=== PATIENT | female | born 1980 | race Caucasian/White ===

== ENCOUNTER 2020-03-23 13:19 | Emergency (ER) | payer OTHER, SELFPAY ==
[2020-03-23 13:35] VITALS: BP 124/68; PULSE 94; RESP 16; TEMP 36.7; O2SAT 100
--- NOTE | 2020-03-23 13:56 | ED.URI ---
HPI - URI/Sore Throat General Chief Complaint: Upper Respiratory Infection Stated Complaint: SORE THROAT Time Seen by Provider: 03/23/20 13:38 Source: patient and RN notes reviewed Mode of arrival: ambulatory Limitations: no limitations History of Present Illness HPI Narrative: Patient presents today complaining of a 2-day history of sore throat, left ear fullness, runny nose, mild cough. Currently rates her pain 4/10. She has not been taking any medication for symptoms prior to arrival. Patient does smoke. MD elicited complaint: sore throat Related Data Home Medications Medication Instructions Recorded Confirmed amlodipine 5 mg DAILY 03/23/20 03/23/20 buspirone 10 mg TID 03/23/20 03/23/20 [id number]-[id number]-uiw-cod 1 cap QID PRN 03/23/20 03/23/20 cyanocobalamin (vitamin B-12) 1,000 mcg MONTHLY 03/23/20 03/23/20 diclofenac sodium 75 mg PO BID 03/23/20 03/23/20 fluoxetine 20 mg DAILY 03/23/20 03/23/20 guanfacine 1 mg PO DAILY 03/23/20 03/23/20 meclizine 25 mg DAILY 03/23/20 03/23/20 ondansetron HCl 8 mg BID 03/23/20 03/23/20 topiramate 200 mg DAILY 03/23/20 03/23/20 trazodone 100 mg HS 03/23/20 03/23/20 Allergies Allergy/AdvReac Type Severity Reaction Status Date / Time morphine Allergy Unknown HIVES Verified 03/23/20 13:37 sumatriptan Allergy Unknown FEELS Verified 03/23/20 13:37 LIKE SHE CHOKING amoxicillin AdvReac Intermediate CAUSES Unverified 03/23/20 13:37 YEAST INFECTIONS SUMATRIPTAN SUCCINATE Allergy Unknown FEELS Uncoded 03/23/20 13:37 LIKE SHE CHOKING Review of Systems Review of Systems: Narrative: CONSTITUTIONAL: Denies body aches, fever, chills, or sweats. EYES: Denies visual changes, redness, or discharge. ENT: Denies rhinorrhea. + Rhinorrhea, left ear fullness, sore throat CARDIOVASCULAR: Denies chest pain, palpitations, or edema. RESPIRATORY: Denies cough or dyspnea. GASTROINTESTINAL: Denies abdominal pain, nausea, vomiting, or diarrhea. GENITOURINARY: Denies dysuria or hematuria. SKIN: Denies rash, itching, or wounds. MUSCULOSKELETAL: Denies back pain, joint pain, or myalgia. NEUROLOGIC: Denies headache, numbness, tingling, or weakness. PSYCH: Denies depression or anxiety. PMFSH Social History Social History Gender identity (if verbalized by the patient): Female Comments At time of signature, I have reviewed and agree with nursing past medical, surgical, social and family history unless otherwise noted. Please see nursing chart for further information. There is no relevant family history pertinent to the presenting complaint Exam Narrative: Exam Narrative: GENERAL: Well-appearing, well-nourished, and in no acute distress. HEAD: Normocephalic, atraumatic. EYES: EOMI. No redness or drainage. Conjunctivae normal. ENT: Mucous membranes pink and moist. Nares clear. No rhinorrhea. TMs normal bilaterally. Throat erythematous with mild edema. No exudate. Uvula midline. NECK: Normal AROM. Supple. No lymphadenopathy. CHEST: No respiratory distress. Clear to auscultation. HEART: Regular rate and rhythm. No murmur appreciated. Normal peripheral pulses. EXTREMITIES: Normal range of motion. No edema. SKIN: Warm, dry, no rash. Capillary refill normal. Normal skin turgor. NEURO: No focal deficits. Alert and oriented x3. Gait steady. PSYCH: Normal affect. No signs of depression or anxiety. Course Course Emergency Course: Patient requesting a dose of fluconazole for possible yeast infection resulting from antibiotic use. States she is not currently taking Zofran listed in her medication list, which is listed as an interaction. She has had the fluconazole several times in the past, while taking the guanfacine. Vital Signs Vital signs: Vital Signs Temperature 98.0 F 03/23/20 13:35 Pulse Rate 94 03/23/20 13:35 Respiratory Rate 16 03/23/20 13:35 Blood Pressure 124/68 03/23/20 13:35 Pulse Oximetry 100 03/23/20 13:35 Temperature 98
== END 2020-03-23 14:09 | disposition home or self-care (01) ==
PROVIDERS: Emergency Provider Nurse Practitioner; PCP Nurse Practitioner Family
DX: J02.0 Streptococcal pharyngitis (principal); I10 Essential (primary) hypertension; F17.290 Nicotine dependence, other tobacco product, uncomplicated
CPT/HCPCS: 87880; 99213; G0463

== ENCOUNTER 2020-05-22 09:02 | Outpatient (CLI) | payer OTHER, SELFPAY | END 2020-05-22 09:03 | disposition home or self-care (01) | LOC: ANHAUDIO 09:04 | PROVIDERS: PCP Nurse Practitioner Family | DX: H90.3 Sensorineural hearing loss, bilateral (principal) | CPT/HCPCS: 92537; 92540; 92546; 92557; 92567 ==

== ENCOUNTER → 2021-02-03 01:01 | Outpatient (CLI) | payer OTHER, SELFPAY ==
[2021-02-03 18:26] LABS: SARS-CoV-2 RNA PCR Negative
== END ==
PROVIDERS: PCP Nurse Practitioner Family; Visit Provider Internal Medicine Gastroenterology
DX: R68.89 Other general symptoms and signs (principal); Z20.822 Contact with and (suspected) exposure to COVID-19
CPT/HCPCS: C9803; U0003; U0005

== ENCOUNTER 2021-02-06 01:24 | Day surgery (SDC) | payer OTHER, SELFPAY ==
[2021-01-26 14:05] VITALS: BMI 35.7
[2021-02-06 10:07] VITALS: BP 144/80; PULSE 91; RESP 18; TEMP 36.3; O2SAT 97
[2021-02-06] MEDS: LACTATED RINGERS 1,000 ML 150 ML IV CONT (10:13)
[2021-02-06 10:20] LABS: Glucose Point of Care 147 mg/dl (65-105)
--- NOTE | 2021-02-06 10:53 | WPDANESEPPF ---
Anes - Initial Pre Proc Eval Procedure: Operation Date: 02/06/21 11:30 Proposed Procedures p Esophagogastroduodenoscopy - Moe Mcgarry MD Date/Time: 02/06/21 10:53 Surgeon: Moe Mcgarry MD Pre Op Diagnosis: nausea, vomiting, dysphagia, epigastric pain Patient Data Age: 40 Gender: F Height: 1.45 m Weight: 75.5 kg Last Vital Signs Temp 36.3 C L 02/06/21 10:07 Pulse 91 02/06/21 10:07 Resp 18 02/06/21 10:07 BP 144/80 H 02/06/21 10:07 Pulse Ox 97 02/06/21 10:07 Allergies Allergy/AdvReac Type Severity Reaction Status Date / Time morphine Allergy Unknown HIVES Verified 02/06/21 10:09 sumatriptan Allergy Unknown FEELS Verified 02/06/21 10:09 LIKE SHE CHOKING amoxicillin AdvReac Intermediate CAUSES Verified 02/06/21 10:09 YEAST INFECTIONS SUMATRIPTAN SUCCINATE Allergy Unknown FEELS Uncoded 02/06/21 10:09 LIKE SHE CHOKING Home Medications Medication Instructions Recorded Confirmed Type amlodipine 5 mg PO DAILY 03/23/20 02/06/21 History [id number]-xklmvppqcs-coz-cod 1 cap PO QID PRN 03/23/20 02/06/21 History cyanocobalamin (vitamin B-12) 1,000 mcg SUBCUT MONTHLY 03/23/20 02/06/21 History diclofenac sodium 75 mg PO BID 03/23/20 02/06/21 History fluoxetine 40 mg HS 03/23/20 02/06/21 History guanfacine 1 mg PO DAILY 03/23/20 02/06/21 History meclizine 25 mg PO TID PRN 03/23/20 02/06/21 History ondansetron HCl 8 mg PO BID PRN 03/23/20 02/06/21 History topiramate 200 mg PO BID 03/23/20 02/06/21 History trazodone 100 mg PO HS 03/23/20 02/06/21 History buspirone 10 mg tablet 15 mg PO TID tablet 12/27/20 02/06/21 History bupropion HCl 450 mg PO DAILY 01/26/21 02/06/21 History doxepin 10 mg PO TID 01/26/21 02/06/21 History ergocalciferol (vitamin D2) 1,250 mcg PO WEEKLY 01/26/21 02/06/21 History hydrochlorothiazide 12.5 mg PO DAILY 01/26/21 02/06/21 History hydroxyzine HCl 50 mg PO TID PRN 01/26/21 02/06/21 History metformin 500 mg PO DAILY 01/26/21 02/06/21 History olanzapine 2.5 mg PO DAILY 01/26/21 02/06/21 History olanzapine 5 mg PO HS 01/26/21 02/06/21 History omeprazole 40 mg PO DAILY 01/26/21 02/06/21 History tizanidine 4 mg PO Q6H PRN 01/26/21 02/06/21 History Laboratory Tests 02/06/21 10:13 POC Capillary Glucose 147 mg/dl H mg/dl (65-105) Patient hx anesthesia problems: none Family hx anesthesia problems: none [facility] Past Medical History Medical History (Updated 12/27/20 @ 15:30 by JAUN ParkN-C) Anxiety Muller esophagus Bipolar 1 disorder Cholecystectomy planned Chronic interstitial cystitis Dysphagia Epigastric abdominal pain Genitourinary disorder Hearing abnormally acute Hypertension IBS (irritable bowel syndrome) Insomnia Lumbar adjacent segment disease with spondylolisthesis Migraine Nausea & vomiting Obese Peripheral neuropathic pain Rectum injury Vertigo Surgical History Surgical History (Updated 12/27/20 @ 14:41 by Angela Thomas MA) History of bladder surgery History of hysterectomy Social History Social History Smoking packs per day: 0.5 Smoking cigarettes per day: 10.0 Years smoked: 20 Smoking pack-years: 10.00 Smoking status: Current every day smoker Tobacco type: cigarettes Substance use: current Substance use type: marijuana Other substance usage details: Daily Living arrangements: with family Gender identity (if verbalized by the patient): Female Spiritual care concerns: No Anes - Eval Final PreProcedure Day of Procedure 02/06/21 10:53 Patient weight: obese Heart: regular rate and rhythm Lungs: clear to auscultation and normal air movement Airway: Mallampati scale class II Neurological: alert and oriented Last oral intake: >/= 8 hours ASA classification: III Emergent: no Anesthetic plan: proceed Anesthesia type and monitoring: general GIVS Informed Consent: The patient's anesthetic plan and its attendant risks and benefits w
--- NOTE | 2021-02-06 11:51 | PM.HPGS ---
History of Present Illness History of Present Illness Consent: Risks, benefits, and alternatives have been discussed and questions answered. Patient agrees to proceed with procedure. Chief complaint: nausea, vomiting, dysphagia, epigastric pain Narrative: Dora Garcia is a 40 year old female with nausea and bloating, she had to increase her omeprazole to 40mg daily, also remote history of Muller's per patient and h/o IBS. Intermittent choking after eating. Review of Systems Constitutional: Constitutional: Denies headache(s) and Denies weakness Eyes: Eyes: Denies blurry vision ENT: Reports Normal hearing present, Denies headache(s) and Denies neck pain Cardiovascular: Cardiovascular: Denies chest pain and Denies dyspnea Respiratory: Respiratory: Denies dyspnea Gastrointestinal: Gastrointestinal: Reports no additional gastrointestinal complaints Genitourinary: Genitourinary: Denies dysuria Musculoskeletal: Musculoskeletal: Denies neck pain Integumentary/Breasts: Skin/Breast: Denies dry skin Neurologic: Reports Normal hearing present, Denies headache(s) and Denies weakness Psychiatric: Psychiatric: Denies anxiety Endocrine: Endocrine: Denies change in body appearance Hematologic/Lymphatic: Hematologic/Lymphatic: Denies easy bleeding Allergic/Immunologic: Allergic/Immunologic: Denies urticaria PMFSH Past Medical History Medical History (Updated 02/06/21 @ 11:52 by Moe Mcgarry MD) Anxiety Muller esophagus Bipolar 1 disorder Bloating Cholecystectomy planned Chronic interstitial cystitis Dysphagia Epigastric abdominal pain Genitourinary disorder Hearing abnormally acute Hypertension IBS (irritable bowel syndrome) Insomnia Lumbar adjacent segment disease with spondylolisthesis Migraine Nausea & vomiting Obese Peripheral neuropathic pain Rectum injury Vertigo Surgical History Surgical History (Updated 12/27/20 @ 14:41 by Angela Thomas MA) History of bladder surgery History of hysterectomy Social History Social History Smoking packs per day: 0.5 Smoking cigarettes per day: 10.0 Years smoked: 20 Smoking pack-years: 10.00 Smoking status: Current every day smoker Tobacco type: cigarettes Substance use: current Substance use type: marijuana Other substance usage details: Daily Living arrangements: with family Gender identity (if verbalized by the patient): Female Spiritual care concerns: No Meds Home Medications and Allergies Home Medications Medication Instructions Recorded Confirmed Type amlodipine 5 mg PO DAILY 03/23/20 02/06/21 History [id number]-imyxdcqvbr-znu-cod 1 cap PO QID PRN 03/23/20 02/06/21 History cyanocobalamin (vitamin B-12) 1,000 mcg SUBCUT MONTHLY 03/23/20 02/06/21 History diclofenac sodium 75 mg PO BID 03/23/20 02/06/21 History fluoxetine 40 mg HS 03/23/20 02/06/21 History guanfacine 1 mg PO DAILY 03/23/20 02/06/21 History meclizine 25 mg PO TID PRN 03/23/20 02/06/21 History ondansetron HCl 8 mg PO BID PRN 03/23/20 02/06/21 History topiramate 200 mg PO BID 03/23/20 02/06/21 History trazodone 100 mg PO HS 03/23/20 02/06/21 History buspirone 10 mg tablet 15 mg PO TID tablet 12/27/20 02/06/21 History bupropion HCl 450 mg PO DAILY 01/26/21 02/06/21 History doxepin 10 mg PO TID 01/26/21 02/06/21 History ergocalciferol (vitamin D2) 1,250 mcg PO WEEKLY 01/26/21 02/06/21 History hydrochlorothiazide 12.5 mg PO DAILY 01/26/21 02/06/21 History hydroxyzine HCl 50 mg PO TID PRN 01/26/21 02/06/21 History metformin 500 mg PO DAILY 01/26/21 02/06/21 History olanzapine 2.5 mg PO DAILY 01/26/21 02/06/21 History olanzapine 5 mg PO HS 01/26/21 02/06/21 History omeprazole 40 mg PO DAILY 01/26/21 02/06/21 History tizanidine 4 mg PO Q6H PRN 01/26/21 02/06/21 History Allergies Allergy/AdvReac Type Severity Reaction Status Date / Time morphine Allergy Unknown HIVES Verified 02/06/21 10:09 sumatriptan Allergy Unknown FEELS Verified
[2021-02-06 12:06] VITALS: BP 119/70; PULSE 73; RESP 29; O2SAT 98
[2021-02-06 12:16] VITALS: BP 133/72; PULSE 77; RESP 29; O2SAT 100
[2021-02-06 12:26] VITALS: BP 132/76; PULSE 72; RESP 29; O2SAT 100
== END 2021-02-06 12:41 | disposition home or self-care (01) ==
PROVIDERS: PCP Nurse Practitioner Family; Visit Provider Internal Medicine Gastroenterology
PROC: 0DJ08ZZ Inspection of Upper Intestinal Tract, Via Natural or Artificial Opening Endoscopic (ICD-10-PCS; CPT 43235; principal; 2021-02-06 11:30)
DX: R14.0 Abdominal distension (gaseous) (principal); K21.9 Gastro-esophageal reflux disease without esophagitis; K29.70 Gastritis, unspecified, without bleeding; K29.50 Unspecified chronic gastritis without bleeding; R11.2 Nausea with vomiting, unspecified; R10.13 Epigastric pain; F41.9 Anxiety disorder, unspecified; F31.9 Bipolar disorder, unspecified; I10 Essential (primary) hypertension; K58.9 Irritable bowel syndrome, unspecified; G47.00 Insomnia, unspecified; F17.210 Nicotine dependence, cigarettes, uncomplicated; F12.90 Cannabis use, unspecified, uncomplicated; Z79.84 Long term (current) use of oral hypoglycemic drugs; E66.9 Obesity, unspecified; Z68.36 Body mass index [BMI] 36.0-36.9, adult
CPT/HCPCS: 43239; 82948; 88305; J2704; J7120

== ENCOUNTER 2021-12-24 16:18 | Emergency (ER) | payer OTHER, SELFPAY ==
--- NOTE | ~2021-12-24 | XR_ITS ---
EXAMINATION: XR chest 1V portable INDICATION: Right-sided weakness TECHNIQUE: Portable AP chest at 1707 hours COMPARISON: None available FINDINGS: The lungs are free of acute opacities. No pleural effusion or pneumothorax. The cardiomedia stinal silhouette is normal. IMPRESSION: 1. No acute cardiopulmonary abnormality. Reviewed, dictated and finalized at location A.
--- NOTE | ~2021-12-24 | CT_ITS ---
EXAMINATION: CT brain wo con INDICATION: Right-sided weakness, headache COMPARISON: None TECHNIQUE: Standard unenhanced head CT. The dose-length product (DLP) was 605.33 mGy-cm. The mA was a djusted according to patient size. Iterative reconstruction technique was employed. FINDINGS: There is no intracranial hemorrhage, acute infarction, or abnormal mass lesion. The ventric les are normal. There is no abnormal mass effect or midline shift. The bella-white matter differentiat ion is normal. The basal cisterns are patent. The orbits are normal. The paranasal sinuses, mastoids and calvarium are normal. IMPRESSION: 1. No acute intracranial abnormality. Reviewed, dictated and finalized at location A.
[2021-12-24 16:23] VITALS: BP 140/94; PULSE 100; RESP 16; TEMP 36.8; O2SAT 100
--- NOTE | 2021-12-24 16:48 | ECG_ITS ---
Measurements Intervals [place] Rate: 73 P: 39 FL: 159 QRS: 19 QRSD: 90 T: 38 QT: 378 QTc: 418 Interpretive Statements SINUS RHYTHM NO PREVIOUS ECG AVAILABLE FOR COMPARISON Electronically Signed On 12-25-2021 10:01:31 CDT by Russell Couch M.D.
--- NOTE | 2021-12-24 16:49 | PC.NURSE ---
Pt's symptoms and onset of symptoms discussed with Dr. Stauffer. Per Dr. Stauffer's verbal orders, place cva protocol orders in triage. Pt may remain in waiting room until room available as last known normal is greater than 24 hours and pt is out of window for immediate stroke intervention.
[2021-12-24 17:05] LABS: Basophils Absolute Auto 0.1 K/mm3 (0.0-0.1); Basophils Percent Auto 0.5 % (0.2-1.2); Eosinophils Absolute Auto 0.4 K/mm3 (0-0.3); Eosinophils Percent Auto 3.5 % (0-4.4); Hematocrit 39.8 % (37.0-47.0); Immature Granulocyte Absolute 0.05 K/mm3 (0.00-0.031); Immature Granulocyte Percent A 0.5 % (0-0.5); Lymphocytes Absolute Auto 3.53 K/mm3 (0.9-3.2); Lymphocytes Percent Auto 35.5 % (18.3-44.2); Mean Corpuscular HGB Conc 32.7 g/dl (32-36); Mean Corpuscular Hemoglobin 29.4 pg (26-34); Mean Platelet Volume 10.2 fl (7.4-10.4); Monocytes Absolute Auto 0.5 K/mm3 (0.1-0.6); Monocytes Percent Auto 5.2 % (2.6-8.5); Neutrophils Absolute Auto 5.4 K/mm3 (1.3-6.7); Neutrophils Percent Auto 54.8 % (45.5-73.1); Platelet Count Result 308 k/mm3 (150-375); Red Blood Count 4.42 M/mm3 (4.2-5.4); Red Cell Distribution Width 13.1 % (11.5-14.5); White Blood Count 9.9 K/mm3 (4.5-10.0)
[2021-12-24 17:14] LABS: INR 1.1; Prothrombin Time 13.6 Seconds (11.1-14.7)
[2021-12-24 17:15] LABS: Partial Thromboplastin Time 29.8 SECONDS (22.3-36.8)
[2021-12-24 17:18] LABS: Alanine Aminotransferase 17 U/L (6-35); Albumin Level 4.5 g/dL (3.5-5.1); Alkaline Phosphatase 74 U/L (38-126); Anion Gap 10 mmol/L (8-16); Aspartate Amino Transferase 17 U/L (14-36); Bilirubin,Total 0.1 mg/dL (0.2-1.3); Blood Urea Nitrogen 14 mg/dL (7-17); Calcium 8.8 mg/dL (8.4-10.2); Carbon Dioxide 21 mmol/L (22-30); Chloride 108 mmol/L (98-107); Estimated Glomerular Filt Rate > 60; Glucose 96 mg/dL (65-110); Potassium 3.2 mmol/L (3.4-5.0); Sodium 139 mmol/L (137-145)
[2021-12-24 17:29] LABS: Troponin I < 0.012 ng/mL (0.000-0.034)
[2021-12-24 17:52] LABS: Glucose Point of Care 93 mg/dl (65-105)
[2021-12-24 17:53] VITALS: BP 115/56; PULSE 92; RESP 19; O2SAT 92
[2021-12-24 17:56] VITALS: BP 115/56; PULSE 92; RESP 20; O2SAT 100
[2021-12-24] MEDS: METOCLOPRAMIDE HCL INJ 10 MG/2 ML VIAL IV PUSH (18:11)
[2021-12-24] MEDS: diphenhydrAMINE HCl INJ 50 MG/ML VIAL 25 MG IV PUSH (18:11)
--- NOTE | 2021-12-24 19:04 | ED.NEUROSD ---
HPI - Neuro Symptoms/Deficit General Chief Complaint: Neuro Symptoms/Deficit Stated Complaint: montgomery/speech prob Time Seen by Provider: 12/24/21 17:44 History of Present Illness HPI Narrative: 41-year-old female with history of migraines presents because about 2 days ago she had noticed right-sided weakness that lasted for about 15 minutes, then resolved. She had a similar episode months ago where she was having difficulty with speech that also resolved on its own, was told at the time to follow-up with neurology did not have a chance to yet. Currently still having migraine. Related Data Home Medications Medication Instructions Recorded Confirmed amlodipine 5 mg tablet 5 mg PO DAILY 03/23/20 02/06/21 butalbital 50 mg-acetaminophen 325 1 cap PO QID PRN Pain 03/23/20 02/06/21 mg-caffeine 40 mg-codeine 30 mg cap cyanocobalamin (vitamin B-12) 1,000 mcg subcut MONTHLY 03/23/20 02/06/21 1,000 mcg/mL injection solution diclofenac sodium 75 mg 75 mg PO BID 03/23/20 02/06/21 tablet,delayed release fluoxetine 20 mg capsule 40 mg HS 03/23/20 02/06/21 guanfacine 1 mg tablet,extended 1 mg PO DAILY 03/23/20 02/06/21 release 24 hr meclizine 25 mg tablet 25 mg PO TID PRN Dizziness 03/23/20 02/06/21 ondansetron HCl 8 mg tablet 8 mg PO BID PRN Nausea 03/23/20 02/06/21 topiramate 200 mg tablet 200 mg PO BID 03/23/20 02/06/21 trazodone 100 mg tablet 100 mg PO HS 03/23/20 02/06/21 buspirone 10 mg tablet 15 mg PO TID 12/27/20 02/06/21 bupropion HCl 450 mg 24 hr tablet, 450 mg PO DAILY 01/26/21 02/06/21 extended release doxepin 10 mg capsule 10 mg PO TID 01/26/21 02/06/21 ergocalciferol (vitamin D2) 1,250 1,250 mcg PO WEEKLY 01/26/21 02/06/21 mcg (50,000 unit) capsule hydrochlorothiazide 12.5 mg tablet 12.5 mg PO DAILY 01/26/21 02/06/21 hydroxyzine HCl 50 mg tablet 50 mg PO TID PRN Anxiety 01/26/21 02/06/21 metformin 500 mg tablet,extended 500 mg PO DAILY 01/26/21 02/06/21 release 24 hr olanzapine 2.5 mg tablet 2.5 mg PO DAILY 01/26/21 02/06/21 olanzapine 5 mg tablet 5 mg PO HS 01/26/21 02/06/21 omeprazole 40 mg capsule,delayed 40 mg PO DAILY 01/26/21 02/06/21 release tizanidine 4 mg tablet 4 mg PO Q6H PRN Muscle Spasm 01/26/21 02/06/21 Allergies Allergy/AdvReac Type Severity Reaction Status Date / Time morphine Allergy Unknown HIVES Verified 12/24/21 19:30 sumatriptan Allergy Unknown FEELS Verified 12/24/21 19:30 LIKE SHE CHOKING amoxicillin AdvReac Intermediate CAUSES Verified 12/24/21 19:30 YEAST INFECTIONS SUMATRIPTAN SUCCINATE Allergy Unknown FEELS Uncoded 12/24/21 19:30 LIKE SHE CHOKING Review of Systems Review of Systems: CONST: No fever. HEENT: No dysarthria C/V: No chest pain RESP: No cough GI: Nausea : No dysuria. M/S: No joint pain. SKIN: No rash. NEURO: Headache PSYCH: [No depression] PMFSH Past Medical History Medical History Anxiety Muller esophagus Bipolar 1 disorder Bloating Cholecystectomy planned Chronic interstitial cystitis Dysphagia Epigastric abdominal pain Genitourinary disorder Hearing abnormally acute Hypertension IBS (irritable bowel syndrome) Insomnia Lumbar adjacent segment disease with spondylolisthesis Migraine Nausea & vomiting Obese Peripheral neuropathic pain Rectum injury Vertigo Surgical History Surgical History History of bladder surgery History of hysterectomy Social History Social History Smoking packs per day: 0.5 Smoking cigarettes per day: 10.0 Years smoked: 20 Smoking pack-years: 10.00 Smoking status: Current every day smoker Tobacco type: cigarettes Substance use: current Substance use type: marijuana Other substance usage details: Daily Gender identity (if verbalized by the patient): Female Spiritual care concerns: No Exam Narrative: EXAM
[2021-12-24] MEDS: ASPIRIN 81 MG CHEWABLE TABLET 324 MG PO (19:36)
[2021-12-24] MEDS: CLOPIDOGREL BISULFATE 300 MG TABLET PO (19:39)
[2021-12-24] MEDS: ATORVASTATIN 40 MG TABLET 80 MG PO (19:39)
[2021-12-24 19:45] VITALS: BP 111/54; PULSE 74; RESP 16; O2SAT 99
== END 2021-12-24 19:43 | disposition home or self-care (01) ==
PROVIDERS: Emergency Medicine; Emergency Provider Emergency Medicine; PCP Nurse Practitioner Family
DX: G43.909 Migraine, unspecified, not intractable, without status migrainosus (principal); R53.1 Weakness; N30.10 Interstitial cystitis (chronic) without hematuria; I10 Essential (primary) hypertension; K58.9 Irritable bowel syndrome, unspecified; K22.70 Barrett's esophagus without dysplasia; E66.9 Obesity, unspecified; Z68.35 Body mass index [BMI] 35.0-35.9, adult; F41.9 Anxiety disorder, unspecified; F17.210 Nicotine dependence, cigarettes, uncomplicated; Z90.710 Acquired absence of both cervix and uterus; Z79.84 Long term (current) use of oral hypoglycemic drugs
CPT/HCPCS: 36415; 70450; 71045; 80053; 82948; 84484; 85025; 85610; 85730; 93005; 96374; 96375; 99284; A9270; J1200; J2765

== ENCOUNTER 2022-05-10 17:29 | Emergency (ER) | payer OTHER, SELFPAY ==
--- NOTE | ~2022-05-10 | XR_ITS ---
XR wrist LT min 3V DATE: 05/10/2022 18:11 INDICATION: Injury, wrist pain TECHNIQUE: 4 views COMPARISON: None FINDINGS: No fracture or dislocation, periosteal reaction or bone destruction. Joint spaces are prese rved. No erosive change. IMPRESSION: Negative Reviewed, dictated and finalized at location A. IMPRESSION: Negative
[2022-05-10 17:37] VITALS: BP 134/79; PULSE 88; RESP 16; TEMP 36.4; O2SAT 100
--- NOTE | 2022-05-10 18:13 | ED.UPPEXIN ---
HPI - Extremity Injury (Upper) General Chief Complaint: Extremity Injury, Upper Stated Complaint: INJURED L WRIST/HAND Time Seen by Provider: 05/10/22 18:00 Source: patient Mode of arrival: ambulatory Limitations: no limitations History of Present Illness HPI narrative: 41-year-old who presents with complaint of left wrist pain for 1 week. Started after breaking up a fight between her dogs. Has been taking ibuprofen and wearing Abel wrap for 1 week without relief. States pain is ?excruciating?. Distal neurovascularly intact. Range of motion decreased pain. Presents wearing Abel wrap from home. All systems reviewed and negative except as noted above. Related Data Home Medications Medication Instructions Recorded Confirmed amlodipine 5 mg tablet 5 mg PO DAILY 03/23/20 05/10/22 butalbital 50 mg-acetaminophen 325 1 cap PO QID PRN Pain 03/23/20 05/10/22 mg-caffeine 40 mg-codeine 30 mg cap cyanocobalamin (vitamin B-12) 1,000 mcg subcut MONTHLY 03/23/20 05/10/22 1,000 mcg/mL injection solution fluoxetine 20 mg capsule 40 mg HS 03/23/20 05/10/22 meclizine 25 mg tablet 25 mg PO TID PRN Dizziness 03/23/20 05/10/22 ondansetron HCl 8 mg tablet 8 mg PO BID PRN Nausea 03/23/20 05/10/22 topiramate 200 mg tablet 200 mg PO BID 03/23/20 05/10/22 trazodone 100 mg tablet 100 mg PO HS 03/23/20 05/10/22 buspirone 10 mg tablet 30 mg PO BID 12/27/20 05/10/22 bupropion HCl 450 mg 24 hr tablet, 450 mg PO DAILY 01/26/21 05/10/22 extended release ergocalciferol (vitamin D2) 1,250 1,250 mcg PO WEEKLY 01/26/21 05/10/22 mcg (50,000 unit) capsule hydrochlorothiazide 12.5 mg tablet 12.5 mg PO DAILY 01/26/21 05/10/22 hydroxyzine HCl 50 mg tablet 50 mg PO TID PRN Anxiety 01/26/21 05/10/22 metformin 500 mg tablet,extended 500 mg PO DAILY 01/26/21 05/10/22 release 24 hr olanzapine 2.5 mg tablet 2.5 mg PO DAILY 01/26/21 05/10/22 olanzapine 5 mg tablet 5 mg PO HS 01/26/21 05/10/22 omeprazole 40 mg capsule,delayed 40 mg PO DAILY 01/26/21 05/10/22 release tizanidine 4 mg tablet 4 mg PO Q6H PRN Muscle Spasm 01/26/21 05/10/22 duloxetine 30 mg capsule,delayed 30 mg PO DAILY 05/10/22 05/10/22 release erenumab-aooe 70 mg/mL 70 mg subcut MONTHLY 05/10/22 05/10/22 subcutaneous auto-injector (Aimovig Autoinjector) gabapentin 300 mg capsule 300 mg PO DAILY 05/10/22 05/10/22 glimepiride 2 mg tablet 2 mg PO DAILY 05/10/22 05/10/22 rimegepant 75 mg disintegrating 75 mg PO PRN PRN Migraine Headache 05/10/22 05/10/22 tablet (Nurtec ODT) ziprasidone HCl 20 mg capsule 20 mg PO DAILY 05/10/22 05/10/22 ziprasidone HCl 40 mg capsule 40 mg PO HS 05/10/22 05/10/22 Allergies Allergy/AdvReac Type Severity Reaction Status Date / Time morphine Allergy Unknown HIVES Verified 05/10/22 17:44 sumatriptan Allergy Unknown FEELS Verified 05/10/22 17:44 LIKE SHE CHOKING amoxicillin AdvReac Intermediate CAUSES Verified 05/10/22 17:44 YEAST INFECTIONS SUMATRIPTAN SUCCINATE Allergy Unknown FEELS Uncoded 05/10/22 17:44 LIKE SHE CHOKING Review of Systems Review of Systems: CONSTITUTIONAL: Denies fever, chills, or sweats. EYES: Denies visual changes, redness, or discharge. ENT: Denies rhinorrhea, congestion, sore throat, or otalgia. CARDIOVASCULAR: Denies chest pain, palpitations, or edema. RESPIRATORY: Denies cough or dyspnea. GASTROINTESTINAL: Denies abdominal pain, nausea, vomiting, or diarrhea. GENITOURINARY: Denies dysuria or hematuria. SKIN: Denies rash or itching. MUSCULOSKELETAL: Reports left wrist pain and swelling. NEUROLOGIC: Denies headache, numbness, or weakness. PSYCHIATRIC: Denies anxiety or depression. All other systems reviewed are negative, except as documented in HPI. [facility] Past Medical History Medical History Anxiety Muller esophagus Bipolar 1 disorder Bloating Cholecystectomy planned Chronic interstitial cystitis Dysphagia Epigastric abdominal pain Genitou
== END 2022-05-10 18:31 | disposition home or self-care (01) ==
PROVIDERS: Emergency Provider Nurse Practitioner Family; PCP Nurse Practitioner Family
DX: S63.502A Unspecified sprain of left wrist, initial encounter (principal); X58.XXXA Exposure to other specified factors, initial encounter; K22.70 Barrett's esophagus without dysplasia; I10 Essential (primary) hypertension; G62.9 Polyneuropathy, unspecified; F17.210 Nicotine dependence, cigarettes, uncomplicated; F12.90 Cannabis use, unspecified, uncomplicated; F41.9 Anxiety disorder, unspecified; F31.9 Bipolar disorder, unspecified
CPT/HCPCS: 73110; 99213; G0463